=== PATIENT | female | born 1980 | race Caucasian/White ===

== ENCOUNTER 2016-07-27 08:08 | Emergency (ER) | payer MEDICAID ==
[~2016-07-27] VITALS: Ht 154.9 cm; Wt 102.5 kg
[2016-07-27 10:51] LABS: CALCIUM 8.9 mg/dL (8.5-10.1); CARBON DIOXIDE 22.7 mmol/L (21-32); CHLORIDE SERUM 106 mmol/L (98-107); CREATININE SERUM 0.6 mg/dL (0.6-1.0); GFR1 > 60 mL/min; GLUCOSE SERUM 83 mg/dL (74-106); POTASSIUM SERUM 4.4 mmol/L (3.5-5.1); SODIUM SERUM 140 mmol/L (136-145)
[2016-07-27 10:54] LABS: BASOPHIL % 0.5 % (0-2); PLATELET COUNT 298 x10^3mcL (130-400); RED CELL DISTRIBUTION WIDTH 13.9 % (11.5-14.5)
[2016-07-27 14:12] VITALS: BP 120/82
== END 2016-07-27 14:12 | disposition home or self-care (01) ==
LOC: ED 08:08
PROVIDERS: Emergency Medicine
DX: M25.512 Pain in left shoulder (principal); R07.89 Other chest pain; F17.210 Nicotine dependence, cigarettes, uncomplicated; J45.909 Unspecified asthma, uncomplicated; Z88.2 Allergy status to sulfonamides; Z88.1 Allergy status to other antibiotic agents; Z79.51 Long term (current) use of inhaled steroids; Z88.8 Allergy status to other drugs, medicaments and biological substances
CPT/HCPCS: J1885; J7030; Q9967

== ENCOUNTER 2016-08-13 11:56 | Emergency (ER) | payer MEDICAID ==
[~2016-08-13] VITALS: Ht 154.9 cm; Wt 100.5 kg
[2016-08-13 12:06] VITALS: BP 144/107
== END 2016-08-13 14:08 | disposition home or self-care (01) ==
LOC: ED 11:56
DX: S16.1XXA Strain of muscle, fascia and tendon at neck level, initial encounter (principal); J45.909 Unspecified asthma, uncomplicated; Z88.2 Allergy status to sulfonamides; Z88.1 Allergy status to other antibiotic agents; X58.XXXA Exposure to other specified factors, initial encounter; Y93.89 Activity, other specified; Y99.8 Other external cause status; Y92.89 Other specified places as the place of occurrence of the external cause
CPT/HCPCS: J0780; J1885

== ENCOUNTER 2016-09-12 15:07 | Emergency (ER) | payer MEDICAID ==
[2016-09-12 18:11] VITALS: BP 132/90
== END 2016-09-12 18:11 | disposition home or self-care (01) ==
LOC: ED 15:07
DX: G43.909 Migraine, unspecified, not intractable, without status migrainosus (principal); J45.909 Unspecified asthma, uncomplicated; Z88.2 Allergy status to sulfonamides; Z88.1 Allergy status to other antibiotic agents; Z79.899 Other long term (current) drug therapy
CPT/HCPCS: J1885; Q0162

== ENCOUNTER 2016-12-24 13:39 | Inpatient (IN) | payer MEDICAID ==
[~2016-12-24] VITALS: Ht 154.9 cm; Wt 103.0 kg
[2016-12-24 14:49] LABS: BASOPHIL % 0.3 % (0-2); CALCIUM 8.8 mg/dL (8.5-10.1); CARBON DIOXIDE 28.7 mmol/L (21-32); CHLORIDE SERUM 104 mmol/L (98-107); CREATININE SERUM 0.5 mg/dL (0.6-1.0); GFR1 > 60 mL/min; GLUCOSE SERUM 83 mg/dL (74-106); PLATELET COUNT 334 x10^3mcL (130-400); POTASSIUM SERUM 3.7 mmol/L (3.5-5.1); SODIUM SERUM 140 mmol/L (136-145)
[2016-12-24 14:53] LABS: ALBUMIN 3.6 g/dL (3.4-5.0); ALKALINE PHOSPHATASE 115 U/L (46-116); ALT/SGPT 55 U/L (14-59); AST/SGOT 26 U/L (15-37); BILIRUBIN TOTAL 0.5 mg/dL (0.20-1.00)
[2016-12-24 14:54] LABS: TOTAL PROTEIN, SERUM 8.3 g/dL (6.4-8.2)
[2016-12-24 15:52] LABS: PHOSPHOROUS 4.4 mg/dL (2.5-4.9)
[2016-12-24 16:02] LABS: T3 TOTAL 1.36 ng/mL
[2016-12-24 16:04] LABS: FREE T4 1.11 ng/dL (0.76-1.46); FREE THYROXINE INDEX 3.5 ug/dL (1.4-4.5); T4(THYROXINE) 10.5 ug/dL (4.7-13.3)
[2016-12-24 16:57] VITALS: BP 142/81
[2016-12-24 20:52] VITALS: BP 130/61
[2016-12-25 05:13] VITALS: BP 132/71
[2016-12-25 06:22] LABS: BASOPHIL % 0.3 % (0-2); PLATELET COUNT 273 x10^3mcL (130-400); RED CELL DISTRIBUTION WIDTH 13.6 % (11.5-14.5)
[2016-12-25 06:46] LABS: microscopic required? NO
[2016-12-25 06:49] LABS: CALCIUM 8.6 mg/dL (8.5-10.1); CARBON DIOXIDE 25.8 mmol/L (21-32); CHLORIDE SERUM 108 mmol/L (98-107); CREATININE SERUM 0.6 mg/dL (0.6-1.0); GFR1 > 60 mL/min; GLUCOSE SERUM 85 mg/dL (74-106); POTASSIUM SERUM 4.2 mmol/L (3.5-5.1); SODIUM SERUM 141 mmol/L (136-145)
[2016-12-25 08:37] LABS: urine erythrocyte NEGATIVE (NEGATIVE)
[2016-12-25 08:50] VITALS: BP 145/83
[2016-12-25 09:14] LABS: AMPHETAMINE QUAL UR NONE DETECTED (NEG <=1000)
[2016-12-25 10:32] VITALS: Ht 154.9 cm; Wt 103.0 kg
[2016-12-25 12:49] LABS: CHOLESTEROL/HDL RATIO 4.7
[2016-12-25 13:05] VITALS: BP 117/86
[2016-12-25 13:21] VITALS: BP 117/86
[2016-12-25] MEDS ORDERED: ECO81 PO (13:22)
[2016-12-25] MEDS ORDERED: LIPI10 PO (13:22)
== END 2016-12-25 14:04 | disposition home or self-care (01) | DRG 47 ==
LOC: ED 13:39 → DU 15:21
PROVIDERS: Emergency Medicine; Family Medicine; ADMIT Student in an Organized Health Care Education/Training Program
DX: G45.9 Transient cerebral ischemic attack, unspecified (principal); Z68.41 Body mass index [BMI] 40.0-44.9, adult; G90.9 Disorder of the autonomic nervous system, unspecified; F41.9 Anxiety disorder, unspecified; J45.909 Unspecified asthma, uncomplicated; M47.892 Other spondylosis, cervical region; Z87.891 Personal history of nicotine dependence
CPT/HCPCS: 83880; 84439; J7030; Q0092

== ENCOUNTER 2018-04-07 19:35 | Emergency (ER) | payer MEDICAID ==
[~2018-04-07] VITALS: Ht 154.9 cm; Wt 107.5 kg
[~2018-04-07 19:35] MED LIST: ECO81 PO; LIPI10 PO
[2018-04-07 19:48] VITALS: Ht 154.9 cm; Wt 107.5 kg
[2018-04-07 20:29] LABS: BASOPHIL % 0.3 % (0-2); PLATELET COUNT 333 x10^3mcL (130-400)
[2018-04-07 20:33] LABS: CALCIUM 8.6 mg/dL (8.5-10.1); CARBON DIOXIDE 27.3 mmol/L (21-32); CHLORIDE SERUM 105 mmol/L (98-107); CREATININE SERUM 0.7 mg/dL (0.6-1.0); GFR1 > 60 mL/min; GLUCOSE SERUM 94 mg/dL (74-106); POTASSIUM SERUM 4.1 mmol/L (3.5-5.1); RED CELL DISTRIBUTION WIDTH 15.5 % (11.5-14.5); SODIUM SERUM 142 mmol/L (136-145)
[2018-04-07 20:38] LABS: ALKALINE PHOSPHATASE 112 U/L (46-116); ALT/SGPT 49 U/L (14-59); AST/SGOT 27 U/L (15-37); BILIRUBIN TOTAL 0.3 mg/dL (0.20-1.00); MAGNESIUM 2.1 mg/dL (1.8-2.4); TOTAL PROTEIN, SERUM 7.9 g/dL (6.4-8.2)
[2018-04-07 20:47] LABS: ALBUMIN 3.3 g/dL (3.4-5.0)
[2018-04-08 00:42] VITALS: BP 127/94
== END 2018-04-08 00:42 | disposition home or self-care (01) ==
LOC: ED 19:35
PROVIDERS: Emergency Medicine
DX: M79.661 Pain in right lower leg (principal); J45.909 Unspecified asthma, uncomplicated; I10 Essential (primary) hypertension; I72.9 Aneurysm of unspecified site; Z88.2 Allergy status to sulfonamides; Z88.1 Allergy status to other antibiotic agents
CPT/HCPCS: 36415; Q0092